=== PATIENT | male | born 1985 | race Caucasian/White ===

== ENCOUNTER 2018-11-01 19:13 | Emergency (ER) | payer SELFPAY ==
[2018-11-01 20:25] LABS: #Basophils 0.2 thou/uL (0.0-0.2); #Eosinphils 0.2 thou/uL (0.0-0.7); #Lymphocytes 3.4 thou/uL (1.20-3.40); #Monocytes 0.8 thou/uL (0.11-0.59); #Neutrophils 2.5 thou/uL (1.40-6.50); %Basophils 2.4 % (0.0-1.0); %Eosinophils 2.4 % (0.0-10.0); %Lymphocytes 48.6 % (21.0-51.0); %Monocytes 11.1 % (0.0-10.0); %Neutrophils 35.5 % (42.0-75.0); Hemoglobin 15.6 g/dL (14.0-18.0); Mean Corpuscular HGB CONC 33.7 g/dL (32.0-36.0); Mean Corpuscular Hemoglobin 31.7 pg (27.0-31.0); Mean Corpuscular Volume 94.3 fL (78.0-98.0); Mean Platelet Volume 11.1 fL (7.4-10.4); Platelet Count 171 thou/uL (130-400); RBC Distribution Width 11.2 % (11.5-14.5); Red Blood Cell (RBC) Count 4.92 mill/uL (4.70-6.10)
[2018-11-01 20:41] LABS: ALT (SGPT) 146 U/L (8-55); AST (SGOT) 57 U/L (5-34); Albumin 4.3 g/dL (3.5-5.0); Alkaline Phosphatase 86 U/L (40-150); Anion Gap 15 mmol/L (10-20); BUN (Urea Nitrogen) 9 mg/dL (8.9-20.6); Bilirubin, Total 0.3 mg/dL (0.2-1.2); Calc. Creatinine Clearance 0 mL/min (70-130); Calcium 8.7 mg/dL (7.8-10.44); Carbon Dioxide 21 mmol/L (22-29); Chloride 105 mmol/L (98-107); Estimated GFR-MDRD 84; Globulin 3.2 g/dL (2.4-3.5); Glucose 86 mg/dL (70-105); Potassium 4.4 mmol/L (3.5-5.1); Protein, Total 7.5 g/dL (6.0-8.3); Sodium 137 mmol/L (136-145)
--- NOTE | 2018-11-01 21:20 | CT ---
CT PULMONARY ANGIOGRAM WITH IV CONTRAST AND 3D MIP RECONSTRUCTIONS 11/01/18 PROVIDED CLINICAL HISTORY: Chest pain. FINDINGS: Heart, pericardium and great vessels demonstrate an unremarkable CT appearance. There is no evidence for central or segmental pulmonary embolus. There are borderline enlarged subcarinal and bilateral hilar lymph nodes. There is patchy air space disease present within the left lower lobe, compatible with infectious pneu monitis. The lungs appear otherwise clear. There is no pleural fluid or pneumothorax apparent. The airway appears patent and of normal caliber. The visualized portions of the upper abdomen demonstrate prominent diffuse fatty infiltration of the liver. Osseous structures demonstrate no concerning lytic or blastic lesions. IMPRESSION: 1. No evidence for central or segmental pulmonary embolus. 2. Infectious pneumonitis involving the left lower lobe. 3. Presumably reactive mediastinal and hilar lymph node enlargement. Consider followup. 4. Prominent fatty infiltration of the liver. POS: [facility]
== END 2018-11-01 21:55 | disposition home or self-care (01) ==
LOC: SCSER 19:13
DX: J18.1 Lobar pneumonia, unspecified organism (principal); K76.0 Fatty (change of) liver, not elsewhere classified; J45.909 Unspecified asthma, uncomplicated; B20 Human immunodeficiency virus [HIV] disease; Z86.711 Personal history of pulmonary embolism; Z86.718 Personal history of other venous thrombosis and embolism
CPT/HCPCS: 71275; 80053; 84484; 85025; 87804; 93005; 96360; 96361; J7620

== ENCOUNTER 2019-12-25 18:16 | Emergency (ER) | payer SELFPAY ==
[2019-12-25] MEDS ORDERED: methylPREDNISolone Sod Succ/PF 125 MG/2 ML VIAL ONE (18:37)
[2019-12-25] MEDS ORDERED: Lorazepam 2 MG/ML VIAL ONE (18:37)
--- NOTE | 2019-12-25 18:47 | RAD ---
EXAM: CHEST ONE VIEW HISTORY: Chest pain. COMPARISON: None FINDINGS: The cardiac silhouette and pulmonary vasculature is within normal limits. The lungs are clear. The os seous structures are intact. IMPRESSION: No acute cardiopulmonary process.
[2019-12-25 18:51] LABS: Mean Corpuscular HGB CONC 34.8 g/dL (32.0-36.0); Mean Platelet Volume 7.7 fL (7.4-10.4); Platelet Count 228 thou/uL (130-400); RBC Distribution Width 11.4 % (11.5-14.5); Red Blood Cell (RBC) Count 4.27 mill/uL (4.70-6.10); White Blood Cell (WBC) Count 20.2 thou/uL (4.8-10.8)
[2019-12-25 19:01] LABS: ALT (SGPT) 46 U/L (8-55); AST (SGOT) 37 U/L (5-34); Albumin 4.3 g/dL (3.5-5.0); Alkaline Phosphatase 89 U/L (40-110); Anion Gap 17 mmol/L (10-20); BUN (Urea Nitrogen) 14 mg/dL (8.9-20.6); Bilirubin, Total 1.2 mg/dL (0.2-1.2); Calc. Creatinine Clearance 0 mL/min (70-130); Carbon Dioxide 21 mmol/L (22-29); Chloride 103 mmol/L (98-107); Estimated GFR-MDRD 64; Globulin 2.3 g/dL (2.4-3.5); Glucose 77 mg/dL (70-105); Lipase 14 U/L (8-78); Potassium 3.5 mmol/L (3.5-5.1); Protein, Total 6.6 g/dL (6.0-8.3); Sodium 137 mmol/L (136-145)
[2019-12-25 19:06] LABS: Acetaminophen Less than 6.0 mcg/mL (10.0-30.0); Alcohol Less than 10 mg/dL (Less than 10); CK (CPK) 1500 U/L (30-200); Magnesium 1.7 mg/dL (1.6-2.6); Salicylate Less than 8.0 mg/dL (15.0-30.0)
[2019-12-25 19:15] LABS: MDiff Complete? YES
[2019-12-25 19:16] LABS: Band 2 % (5-11); Lymphocytes 14 % (21-51); Macrocytosis SLIGHT = 6-15 cells (100X) (0-5/hpf); Monocytes 13 % (0-10); Neutrophil 61 % (42-75); Platelet Morphology Comment Appears Adequate; Polychromasia SLIGHT = 2-3 cells (100X) (0-2/hpf); Reactive Lymphocytes 10 % (0-10)
[2019-12-25 19:53] LABS: Bacteria/HPF None Seen HPF (None Seen); Squamous Epithelial None Seen HPF (0-3); WBC/HPF None Seen HPF (0-3)
[2019-12-25 19:57] LABS: Amphetamine Not Detected (NotDetected); Barbiturates Screen Not Detected (NotDetected); Benzodiazepine Screen Not Detected (NotDetected); Cocaine Metabolite Screen Not Detected (NotDetected); Medtox Control Line Valid? VALID (VALID); Medtox Reader # READER 1; Methadone Not Detected (NotDetected); Methamphetamine Detected (NotDetected); Opiate Screen Not Detected (NotDetected); Oxycodone Screen Not Detected (NotDetected); Phencyclidine (PCP) Not Detected (NotDetected); THC/Cannabinoid Screen Not Detected (NotDetected); Tricyclic Screen Not Detected (NotDetected)
[2019-12-25 20:10] LABS: Bilirubin Negative (Negative); Blood, Urine Negative (Negative); Glucose, Urine (Dipstick) Negative (Negative); Leukocyte Negative (Negative); Nitrite Negative (Negative); Protein, Urine (Dipstick) Negative (Neg-Trace); Urobilinogen 0.2 mg/dL (Less than 2)
[2019-12-25 20:13] LABS: Clarity Clear (Clear)
[2019-12-28 07:23] LABS: #Eosinphils 0.2 thou/uL (0.0-0.7); #Lymphocytes 3.7 thou/uL (1.20-3.40); #Monocytes 0.7 thou/uL (0.11-0.59); #Neutrophils 4.7 thou/uL (1.40-6.50); %Basophils 0.4 % (0.0-1.0); %Eosinophils 1.7 % (0.0-10.0); %Lymphocytes 39.7 % (21.0-51.0); %Neutrophils 50.3 % (42.0-75.0); Hemoglobin 15.4 g/dL (14.0-18.0); Mean Corpuscular HGB CONC 34.6 g/dL (32.0-36.0); Mean Corpuscular Hemoglobin 35.7 pg (27.0-31.0); Mean Platelet Volume 7.7 fL (7.4-10.4); Platelet Count 255 thou/uL (130-400); RBC Distribution Width 11.6 % (11.5-14.5); Red Blood Cell (RBC) Count 4.31 mill/uL (4.70-6.10); White Blood Cell (WBC) Count 9.3 thou/uL (4.8-10.8)
[2019-12-28 07:43] LABS: Anion Gap 9 mmol/L (10-20); BUN (Urea Nitrogen) 11 mg/dL (8.9-20.6); Calc. Creatinine Clearance 0 mL/min (70-130); Calcium 8.9 mg/dL (7.8-10.44); Carbon Dioxide 31 mmol/L (22-29); Chloride 105 mmol/L (98-107); Estimated GFR-MDRD Greater than 90; Glucose 96 mg/dL (70-105); Potassium 3.5 mmol/L (3.5-5.1); Sodium 141 mmol/L (136-145)
--- NOTE | 2019-12-28 18:21 | CT ---
CT HEAD WITHOUT IV CONTRAST COMPARISON: None HISTORY: New onset hallucinations. Shortness of breath. TECHNIQUE: Axial CT imaging at 5 mm intervals from vertex through skull base without contrast FINDINGS: There is no evidence of an acute infarction, hemorrhage, mass effect, or midline shift. The ventricul ar system is normal in size, shape, and position. Visualized paranasal sinuses are clear. Osseous structures appear intact. IMPRESSION: 1. No acute intracranial abnormality demonstrated.
--- NOTE | 2019-12-30 18:22 | EKG ---
Test Reason : Blood Pressure : / mmHG Vent. Rate : 109 BPM Atrial Rate : 109 BPM P-R Int : 156 ms QRS Dur : 078 ms QT Int : 368 ms P-R-T Axes : 035 028 040 degrees QTc Int : 495 ms Sinus tachycardia Possible Left atrial enlargement Low voltage QRS Nonspecific T wave abnormality Abnormal ECG Confirmed by ALO RUDD ([id number]), order editor LIZZ EMMANUEL ([id number]) on 12/30/2019 6:22:15 PM Referred By: Confirmed By:ALO RUDD
== END 2019-12-25 20:11 ==
LOC: ERS 18:16
DX: F22 Delusional disorders (principal); J45.901 Unspecified asthma with (acute) exacerbation; M62.82 Rhabdomyolysis; F15.10 Other stimulant abuse, uncomplicated; B20 Human immunodeficiency virus [HIV] disease; J45.909 Unspecified asthma, uncomplicated; F17.210 Nicotine dependence, cigarettes, uncomplicated; Z86.718 Personal history of other venous thrombosis and embolism; Z86.711 Personal history of pulmonary embolism; Z79.01 Long term (current) use of anticoagulants; Z79.899 Other long term (current) drug therapy
CPT/HCPCS: 36415; 70450; 71045; 80048; 80053; 80306; 80307; 81003; 82550; 83690; 83735; 84443; 84484; 85025; 93005; 96361; 96374; 96375; J2060; J2930; J7620

== ENCOUNTER 2020-01-17 17:55 | Inpatient (IN) | payer SELFPAY ==
--- NOTE | 2020-01-17 19:06 | ULT ---
ULTRASOUND DOPPLER DUPLEX VENOUS LEFT LOWER EXTREMITY: DATE: 01/17/2020 HISTORY: 34-year-old male with left lower extremity swelling and erythema. History of prior DVT. TECHNIQUE: Grayscale, color-flow, and spectral analysis, of the left common femoral, profunda femoral, greater s aphenous, femoral, popliteal, and posterior tibial, veins. FINDINGS: There is thrombus causing incomplete compressibility of the midportion of the femoral vein and poplit eal vein. There is blood flow in these veins. No DVT is visualized in the other veins. IMPRESSION: Positive for nonocclusive deep venous thrombosis in midportion of femoral vein and in popliteal vein.
[2020-01-17 19:11] LABS: #Basophils 0.1 thou/uL (0.0-0.2); #Eosinphils 0.2 thou/uL (0.0-0.7); #Lymphocytes 3.4 thou/uL (1.20-3.40); #Neutrophils 12.3 thou/uL (1.40-6.50); %Basophils 0.4 % (0.0-1.0); %Eosinophils 0.9 % (0.0-10.0); %Lymphocytes 19.9 % (21.0-51.0); %Neutrophils 72.8 % (42.0-75.0); Hemoglobin 14.8 g/dL (14.0-18.0); Mean Corpuscular HGB CONC 34.9 g/dL (32.0-36.0); Mean Corpuscular Hemoglobin 35.4 pg (27.0-31.0); Mean Platelet Volume 7.6 fL (7.4-10.4); Platelet Count 261 thou/uL (130-400); RBC Distribution Width 11.8 % (11.5-14.5); White Blood Cell (WBC) Count 16.9 thou/uL (4.8-10.8)
[2020-01-17 19:33] LABS: ALT (SGPT) 49 U/L (8-55); AST (SGOT) 23 U/L (5-34); Albumin 4.2 g/dL (3.5-5.0); Alkaline Phosphatase 92 U/L (40-110); Anion Gap 11 mmol/L (10-20); BUN (Urea Nitrogen) 12 mg/dL (8.9-20.6); Bilirubin, Total 0.3 mg/dL (0.2-1.2); Calc. Creatinine Clearance 0 mL/min (70-130); Carbon Dioxide 24 mmol/L (22-29); Chloride 108 mmol/L (98-107); Estimated GFR-MDRD Greater than 90; Globulin 2.3 g/dL (2.4-3.5); Glucose 84 mg/dL (70-105); Potassium 3.9 mmol/L (3.5-5.1); Protein, Total 6.5 g/dL (6.0-8.3); Sodium 139 mmol/L (136-145)
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
[2020-01-17] MEDS ORDERED: cefTRIAXone\\ROCEPHIN 2 GM VIAL ONE (20:28)
[2020-01-17] MEDS ORDERED: Enoxaparin Sodium 80 MG/0.8 ML SYRINGE ONE ×3 (20:28→20:40)
[2020-01-17] MEDS ORDERED: Enoxaparin Sodium 30 MG/0.3 ML SYRINGE ONE ×2 (20:28→20:30)
[2020-01-17] MEDS ORDERED: Acetaminophen 325 MG TAB PO PRN (21:05)
[2020-01-17] MEDS ORDERED: Ondansetron PF 4 MG/2 ML Vial IVP PRN (21:05)
[2020-01-17] MEDS ORDERED: Acetaminophen 650 MG Suppository PR PRN (21:05)
[2020-01-17] MEDS ORDERED: Ondansetron ODT 4 MG TAB PO PRN (21:05)
[2020-01-17 21:42] LABS: PTT 29.1 SEC (22.9-36.1); Prothrombin Time 13.1 SEC (12.0-14.7)
[2020-01-17] MEDS ORDERED: Vancomycin HCl 2 GM in Sodium Chloride 0.9% 250 ML 300 ML IVPB SCH (22:00)
[2020-01-17 22:39] VITALS: BMI 32.3
[2020-01-17] MEDS ORDERED: Vancomycin HCl 2.5 GM in Sodium Chloride 0.9% 500 ML IVPB SCH (23:59)
[2020-01-18 00:22] LABS: Amphetamine Not Detected (NotDetected); Barbiturates Screen Not Detected (NotDetected); Benzodiazepine Screen Not Detected (NotDetected); Cocaine Metabolite Screen Not Detected (NotDetected); Medtox Reader # READER 4; Methadone Not Detected (NotDetected); Methamphetamine Not Detected (NotDetected); Opiate Screen Not Detected (NotDetected); Phencyclidine (PCP) Not Detected (NotDetected); THC/Cannabinoid Screen Not Detected (NotDetected); Tricyclic Screen Not Detected (NotDetected)
[2020-01-18 00:23] LABS: Medtox Control Line Valid? VALID (VALID); Oxycodone Screen Not Detected (NotDetected)
[2020-01-18] MEDS ORDERED: diphenhydrAMINE 25 MG CAP PO SCH (05:00)
[2020-01-18 05:36] LABS: #Basophils 0.1 thou/uL (0.0-0.2); #Eosinphils 0.3 thou/uL (0.0-0.7); #Lymphocytes 3.5 thou/uL (1.20-3.40); #Monocytes 0.7 thou/uL (0.11-0.59); #Neutrophils 4.7 thou/uL (1.40-6.50); %Basophils 0.8 % (0.0-1.0); %Eosinophils 2.8 % (0.0-10.0); %Lymphocytes 37.7 % (21.0-51.0); %Monocytes 7.4 % (0.0-10.0); %Neutrophils 51.3 % (42.0-75.0); Hemoglobin 14.7 g/dL (14.0-18.0); Mean Corpuscular HGB CONC 34.1 g/dL (32.0-36.0); Mean Platelet Volume 8.3 fL (7.4-10.4); Platelet Count 240 thou/uL (130-400); RBC Distribution Width 11.8 % (11.5-14.5); Red Blood Cell (RBC) Count 4.19 mill/uL (4.70-6.10); White Blood Cell (WBC) Count 9.2 thou/uL (4.8-10.8)
[2020-01-18 05:58] LABS: Anion Gap 10 mmol/L (10-20); BUN (Urea Nitrogen) 9 mg/dL (8.9-20.6); Calc. Creatinine Clearance 226 mL/min (70-130); Calcium 7.9 mg/dL (7.8-10.44); Carbon Dioxide 22 mmol/L (22-29); Chloride 109 mmol/L (98-107); Estimated GFR-MDRD Greater than 90; Glucose 94 mg/dL (70-105); Potassium 3.7 mmol/L (3.5-5.1); Sodium 137 mmol/L (136-145)
--- NOTE | 2020-01-18 07:05 | PDOC.FM ---
- Subjective Subjective: Patient says that he is feeling well. Denies fever, chills. Says redness has slightly improved but hasnt noticed difference in size of erythema. Mr. Allen shared about hx of during hospitalization in [place] that a physician told him he had a lupus gene positive but the doctor didnt explain what this meant in regards to his DVT. DVT first diagnosed 2009, on warfarin 2-3 years. Then May 2019 diagnosed again in same leg, took eliquis for 3 months then lost to follow up and financial situation. Notes hx of previous unusual infection in R ankle that was treated as cellulitis multiple times and then found to have air under skin on xray and was taken back immediately for surgery. Patient notes the ED physician was surprised by the finding. - Objective Vital Signs & Weight: Vital Signs (12 hours) Temp Pulse Resp BP BP Pulse Ox 01/18/20 04:30 97.9 F 63 20 97/67 95 01/17/20 22:00 96 01/17/20 21:40 98.9 F 84 16 110/77 96 Weight Weight 117.299 kg I&O: 01/17/20 01/18/20 01/19/20 06:59 06:59 06:59 Intake Total 900 Output Total 950 Balance -50 Result Diagrams: 01/18/20 05:01 01/18/20 05:01 Phys Exam - Physical Examination Constitutional: NAD Respiratory: no wheezing, clear to auscultation bilateral Cardiovascular: RRR, no significant murmur Gastrointestinal: soft, positive bowel sounds LLE with bright erythema, reticular like appearance, no noticeable edema Warm to touch. No noticeable edema compared to R Neurological: non-focal Psychiatric: normal affect Skin: normal turgor Dx/Plan - Plan Plan: Recurrent DVT of LLE - US doppler of LLE showing DVT in midportion of femoral/popliteal vein. - Continue with th lovenox 1mg mg/kg BID - Consult case management for dc planning and to help with anticoag upon dc Cellulitis - Continue with rocephin and vanc, for MRSA coverage - Monitor swelling/erythema, elevated LLE - No systemic symptoms, WBC downtrended, Bcx pending. - Consult Dr. Noriega HIV - Continue home meds - [facility] is [facility]. Viral load , CD4 pending. Tobacco use - Urologic Nurse cessation Hx of Drug use - UDS negative Anxiety/schizophrenia - Continue home seroquel Code: Full Diet: reg VTE: th lovenox Dispo: Continue abx therapy, appreciate recommendations from Dr. Noriega. Case management consulted. Addendum - Attending - Attending Attestation Date/Time: 01/18/20 [id number] I personally evaluated the patient and discussed the management with Dr. Jacobo I agree with the History, Examination, Assessment and Plan documented above with any addition or exceptions noted below- Patient without complaints. Afebrile VSS A/P: 1) Cellulitis- continue current therapy. 2) HIV- on Biktarvy; no recent follow-up with ID. Will consult. 3) L chronic DVT; has been off anticoagulation for last 3 months; Currently on lovenox but plan to transition to eliquis versus coumadin. Case management to assist with medication options.
[2020-01-18] MEDS: Vancomycin HCl 1.75 GM in Sodium Chloride 0.9% 500 ML IVPB SCH ×2 (07:56→10:12)
[2020-01-18 08:22] LABS: Vancomycin, Trough 29.9 ug/mL
[2020-01-18] MEDS: Enoxaparin Sodium 120 MG/0.8 ML SYRINGE SC SCH ×2 (08:49→20:57)
[2020-01-18] MEDS: Ibuprofen 600 MG TAB PO PRN ×2 (10:11→22:22)
--- NOTE | 2020-01-18 18:56 | CON ---
DATE OF CONSULTATION: 01/18/2020 REASON FOR CONSULTATION: DVT and HIV positive patient with possible cellulitis. HISTORY OF PRESENT ILLNESS: A 34-year-old whom I follow in the clinic, last time I saw him was at the beginning of 2018. He is currently taking Biktarvy. His last viral load was 160 in December 2018, and CD4 cell count was 870 approximately. He has not had any labs since I have not seen him in a while. He stays at [facility] and is homeless at the moment. Anyway, he has a history of also deep vein thrombosis since 2008, has had pulmonary embolism and was initially diagnosed in [place] and apparently he had a positive antiphospholipid antibody panel in [place] in 2008. He was on warfarin for a while and then was switched to Eliquis in [place] and ran out of the samples they had given him and now has come back with recurrence of the problem basically with a left lower extremity swelling, erythema, and pain. He denied any fever or chills. No respiratory symptoms. No chest pain. No abdominal pain or diarrhea. No genitourinary symptoms. No joint symptoms. PAST MEDICAL HISTORY: HIV seropositive status. His CD4 cell count 870 about a year ago and on Biktarvy with good adherence. He has history of schizophrenia. Deep vein thrombosis. Reported antiphospholipid antibody syndrome. PAST SURGICAL HISTORY: Cellulitis. He has had recurrent cellulitis in lower extremities. FAMILY HISTORY: Unknown. He is adopted. SOCIAL HISTORY: Lives in [facility]. 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 Smokes daily. PHYSICAL EXAMINATION: VITAL SIGNS: Temperature 98.9, when he came in through the emergency room, his temperature was within normal limits. SKIN: Shows the somewhat reticulated nonblanching area of erythema in the medial aspect of the left leg. There is edema associated about 2+ in the leg. No blistering. No lymphadenopathy. HEENT: Ocular movements conjugate. Oral cavity normal. NECK: Supple. No jugular vein distention. LUNGS: Symmetric. Clear breath sounds. HEART: S1 and S2. Regular rate. No S3 or S4. ABDOMEN: Soft. Not distended or tender. No ascites. No bladder distention. LABORATORY DATA: The patient had a vascular ultrasound, which demonstrated nonocclusive DVT midportion femoral vein, popliteal vein. Two sets of blood cultures, no growth. White cell count was 16.9, hemoglobin 14.8, and platelets 261, 72% neutrophils and now the WBCs down to 9.2, hemoglobin of 14.7, and creatinine 0.75. He is receiving vancomycin and is on Lovenox still. ASSESSMENT: 1. Human immunodeficiency virus seropositive status with adequate viral load and CD4 cell count about a year ago. Need to repeat that evaluation since he has been in clinic in about a year. 2. History of antiphospholipid syndrome with warfarin for a while, then switch to Eliquis. He is unable to procure Eliquis, so I would advise switching back to warfarin, which is much more affordable. 3. Left lower extremity changes. DISCUSSION: The differential diagnosis includes the clinical findings consistent with deep vein thrombosis, plus minus superimposed cellulitis. The neutrophilia on admission is mostly demargination and it is possible that he does not have an infection. We will continue just with Rocephin and switch him to Keflex upon discharge planning, penicillin VK 250 mg twice daily at the completion of the acute phase of treatment for chronic secondary prophylaxis and continue warfarin. Continue Biktarvy as currently. Check CD4 cell count and viral load. Job ID: [id number] MTDD
[2020-01-18] MEDS: cefTRIAXone\\ROCEPHIN 1 GM in Sodium Chloride 0.9% 100 ML IVPB SCH (20:57)
[2020-01-18] MEDS: Nicotine 7 MG PATCH TD SCH (22:22)
--- NOTE | 2020-01-19 06:58 | PDOC.FM ---
- Subjective Subjective: Mr. Allen was feeling tired this morning. No concerns otherwise, feeling well. Says he would be interested in starting warfarin. - Objective Vital Signs & Weight: Vital Signs (12 hours) Temp Pulse Resp BP Pulse Ox 01/18/20 20:00 94 L 01/18/20 19:52 98.7 F 77 18 116/56 L 94 L Weight Admit Weight 117.299 kg Weight 117.299 kg I&O: 01/17/20 01/18/20 01/19/20 06:59 06:59 06:59 Intake Total 900 Output Total 950 Balance -50 Result Diagrams: 01/18/20 05:01 01/18/20 05:01 Phys Exam - Physical Examination Constitutional: NAD Respiratory: no wheezing, clear to auscultation bilateral Cardiovascular: RRR, no significant murmur Gastrointestinal: soft, non-tender, positive bowel sounds Skin: normal turgor Deviation from normal: erythema of LLE improved since yesterday Dx/Plan - Plan Plan: Recurrent DVT of LLE - US doppler of LLE showing DVT in midportion of femoral/popliteal vein. - Continue with th lovenox 1mg mg/kg BID - Consulted case management, difficult situation as patient doesnt have permanent address to get assistance program for DOAC. Patient open to warfarin. However questionable if would be able to follow up and get labs for this. Cellulitis, improving - Monitor swelling/erythema, elevated LLE - No systemic symptoms, WBC downtrended, Bcx pending. - Consult Dr. Noriega - on rocephin, plan to switch to PO keflex on discharge HIV - Continue home meds - [facility]. Viral load , CD4 pending. 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 Reliable follow up is questionable. Addendum - Attending - Attending Attestation Date/Time: 01/19/20 1051 I personally evaluated the patient and discussed the management with Dr. Jacobo I agree with the History, Examination, Assessment and Plan documented above with any addition or exceptions noted below - Patient without complaints. Afebrile VSS. A/P: 1) Chronic DVT- will star warfarin due to patient's social situation. Continue lovenox. 2) Cellulitis- improving; will transition to keflex. 3) HIV- continue biktarvy; viral load and CD4 count pending.
[2020-01-19] MEDS: Enoxaparin Sodium 120 MG/0.8 ML SYRINGE SC SCH ×2 (08:58→20:41)
[2020-01-19 15:12] LABS: %CD4 (Helper/Inducer) 36.3 % (30.8-58.5); Absolute CD4 1125 /uL (359-1519); Lymphocytes/Gated Cell Count 3.1 x10E3/uL (0.7-3.1); Total Lymphocyte 35 % (Not Estab.); WBC Total Count 8.9 x10E3/uL (3.4-10.8)
[2020-01-19] MEDS: Warfarin Sodium 5 MG TAB PO SCH (16:49)
[2020-01-19] MEDS: cefTRIAXone\\ROCEPHIN 1 GM in Sodium Chloride 0.9% 100 ML IVPB SCH (20:38)
[2020-01-19] MEDS: Nicotine 7 MG PATCH TD SCH (23:16)
[2020-01-20 06:21] LABS: Prothrombin Time 13.2 SEC (12.0-14.7)
--- NOTE | 2020-01-20 06:42 | PDOC.FM ---
- Subjective Subjective: Mr. Allen reports feeling well. Erythema continues to improve. Denies constipation. Feeling well with no complaints. - Objective Vital Signs & Weight: Vital Signs (12 hours) Temp Pulse Resp BP Pulse Ox 01/19/20 20:35 98.7 F 80 18 111/76 95 01/19/20 20:00 95 Weight Admit Weight 117.299 kg Weight 117.299 kg I&O: 01/18/20 01/19/20 01/20/20 06:59 06:59 06:59 Intake Total 900 810 Output Total 950 Balance -50 810 Result Diagrams: 01/18/20 05:01 01/18/20 05:01 Phys Exam - Physical Examination Constitutional: NAD Respiratory: no wheezing, clear to auscultation bilateral Cardiovascular: RRR, no significant murmur Gastrointestinal: soft, non-tender Neurological: non-focal Skin: normal turgor Deviation from normal: LLE erythema improving Dx/Plan - Plan Plan: 34 yo M with PMH HIV, DVT presents with recurrence of DVT, cellulitis and is admitted for further management. Recurrent DVT of LLE - US doppler of LLE showing DVT in midportion of femoral/popliteal vein. - Continue with th lovenox 1mg mg/kg BID - Consulted case management - Started on warfarin 01/18. Daily INR checks. Continue 5mg today. Cellulitis, improving - Monitor swelling/erythema, elevated LLE - No systemic symptoms, WBC downtrended, blood cx neg. - Consult Dr. Noriega - on rocephin, plan to switch to PO keflex on discharge HIV - Continue home meds - [facility] is [facility]. Viral load , CD4 pending. 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 Expect a couple more days. Addendum - Attending - Attending Attestation Date/Time: 01/20/20 [id number] I personally evaluated the patient and discussed the management with Dr. Jacobo I agree with the History, Examination, Assessment and Plan documented above with any addition or exceptions noted below- Patient without complaints. Afebrile VSS. A/P: 1) Cellulitis- improved; continue current abx and transition to po upon discharge. Will clarify with Dr. Noriega the prophylaxis regimen due to patient's PCN allergy. 2) Chronic DVT- continue lovenox and warfarin. 3) HIV - continue biktarvy. [id number]; viral load pending.
[2020-01-20] MEDS: Enoxaparin Sodium 120 MG/0.8 ML SYRINGE SC SCH ×2 (10:26→21:25)
[2020-01-20] MEDS: Warfarin Sodium 5 MG TAB PO SCH (16:42)
[2020-01-20] MEDS: cefTRIAXone\\ROCEPHIN 1 GM in Sodium Chloride 0.9% 100 ML IVPB SCH (21:20)
[2020-01-20] MEDS: Nicotine 7 MG PATCH TD SCH (21:28)
[2020-01-21 05:44] LABS: Prothrombin Time 13.3 SEC (12.0-14.7)
--- NOTE | 2020-01-21 06:59 | PDOC.FM ---
- Subjective Subjective: Mr. Allen has no complaints or concerns. Cellulitis continues to improve. - Objective Vital Signs & Weight: Vital Signs (12 hours) Temp Pulse Resp BP Pulse Ox 01/20/20 20:00 98.3 F 98 18 128/79 94 L Weight Admit Weight 117.299 kg Weight 117.299 kg I&O: 01/19/20 01/20/20 01/21/20 06:59 06:59 06:59 Intake Total 810 1530 Balance 810 1530 Result Diagrams: 01/18/20 05:01 01/18/20 05:01 Phys Exam - Physical Examination Constitutional: NAD Respiratory: no wheezing, clear to auscultation bilateral Cardiovascular: RRR, no significant murmur Gastrointestinal: soft, non-tender Musculoskeletal: no edema Neurological: non-focal Skin: normal turgor Dx/Plan - Plan Plan: 34 yo M with PMH HIV, DVT presents with recurrence of DVT, cellulitis and is admitted for further management. Recurrent DVT of LLE - US doppler of LLE showing DVT in midportion of femoral/popliteal vein. - Continue with th lovenox 1mg mg/kg BID - Consulted case management - Started on warfarin 01/18. Daily INR checks. INR 1. Increase dose to 10 today. Cellulitis, improving - Monitor swelling/erythema, elevated LLE - No systemic symptoms, WBC downtrended, blood cx neg. - Consult Dr. Noriega - on rocephin, plan to switch to PO keflex on discharge HIV - Continue home Bictarvy. CD4 1125. 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 Expect a couple more days. Addendum - Attending - Attending Attestation Date/Time: 01/21/20 1048 I personally evaluated the patient and discussed the management with Dr. Jacobo I agree with the History, Examination, Assessment and Plan documented above with any addition or exceptions noted below- Patient without complaints. Afebrile VSS. A/P: 1) Cellulitis - improved; change to po abx; 2) Chronic DVT - continue lovenox and warfarin. Await INR = 2-3; 3) HIV- continue Biktarvy
[2020-01-21] MEDS: Enoxaparin Sodium 120 MG/0.8 ML SYRINGE SC SCH ×2 (09:43→20:01)
[2020-01-21] MEDS: Bictegrav/Emtricit/Tenofov Ala [Biktarvy 50-200-25 Mg Tablet] PO SCH ×3 (09:43→09:44)
[2020-01-21] MEDS ORDERED: Cephalexin 250 MG CAP PO SCH (11:15)
[2020-01-21] MEDS: Warfarin Sodium 10 MG TAB PO SCH (17:19)
[2020-01-21 17:25] LABS: INR-International Normal Ratio 1.1
--- NOTE | 2020-01-21 17:45 | PRG ---
DATE OF SERVICE: SUBJECTIVE: Patient is much better in terms of his left lower leg erythema and pain. Still having his INR upgraded and that is holding his discharge. No other symptoms of significance. OBJECTIVE: VITAL SIGNS: His vital signs are normal. O2 saturations are good. LUNGS: Clear. HEART: S1-S2. Regular rate. ABDOMEN: Soft. EXTREMITIES: The left leg with complete resolution of the erythema and tenderness. LABORATORY DATA: The CD4 cell count is 1125, viral load is pending. White cell count is 9.2. Blood culture, no growth. ASSESSMENT AND DISCUSSION: Human immunodeficiency virus seropositive status with adequate CD4 cell count pending viral load. History of antiphospholipid syndrome, currently on warfarin. Left lower extremity changes which are more likely to represent the consequences of the DVT rather than cellulitis, but he was treated for superimposed cellulitis nonetheless. Continue Keflex for another five or seven days and then transition to suppressive pen VK 250 twice daily for 6 to 12 months. Continue his antiretroviral therapy. Job ID: [id number]
[2020-01-21] MEDS: Cephalexin 250 MG CAP PO SCH (20:01)
[2020-01-21] MEDS: Nicotine 7 MG PATCH TD SCH (21:27)
[2020-01-22 06:07] LABS: INR-International Normal Ratio 1.2; Prothrombin Time 15.5 SEC (12.0-14.7)
--- NOTE | 2020-01-22 06:51 | PDOC.FM ---
- Subjective Subjective: Pt has not complaints this morning. States his leg is looking and feeling better. Denies any events overnight. No SOB, cough. - Objective Vital Signs & Weight: Vital Signs (12 hours) Temp Pulse Resp BP Pulse Ox 01/21/20 20:00 97.8 F 77 18 102/70 95 Weight Admit Weight 117.299 kg Weight 117.299 kg I&O: 01/20/20 01/21/20 01/22/20 06:59 06:59 06:59 Intake Total 810 1530 1340 Balance 810 1530 1340 Result Diagrams: 01/18/20 05:01 01/18/20 05:01 Phys Exam - Physical Examination Constitutional: NAD HEENT: sclera anicteric Neck: full ROM Respiratory: clear to auscultation bilateral Cardiovascular: RRR Gastrointestinal: soft, non-tender trace edema Neurological: non-focal Psychiatric: normal affect, A&O x 3 Deviation from normal: mild venous static skin changes to RLE, interval improvement Dx/Plan (1) Anxiety Code(s): F41.9 - ANXIETY DISORDER, UNSPECIFIED Status: Acute (2) Asthma Code(s): J45.909 - UNSPECIFIED ASTHMA, UNCOMPLICATED Status: Acute (3) Deep vein blood clot of left lower extremity Code(s): I82.402 - ACUTE EMBOLISM AND THOMBOS UNSP DEEP VEINS OF L LOW EXTREM Status: Acute (4) HIV (human immunodeficiency virus infection) Code(s): B20 - HUMAN IMMUNODEFICIENCY VIRUS [HIV] DISEASE Status: Acute - Plan Plan: 34 yo M with PMH HIV, DVT presents with recurrence of DVT, cellulitis and is admitted for further management. Recurrent DVT of LLE - US doppler of LLE showing DVT in midportion of femoral/popliteal vein. - Continue with lovenox 1mg mg/kg BID - Consulted case management - Started on warfarin 01/18. Daily INR checks. INR 1.2 today. Dose increased to 10 yesterday - No further dose adjustments at this time as it takes multiple days to see Rx affect - Will continue to monitor INR until near or fully therapeutic before DC Cellulitis vs Acute Venous Stasis - Monitor swelling/erythema, elevated LLE - No systemic symptoms, WBC downtrended, blood cx neg. - Consult Dr. Noriega - switched from rocephin to keflex yesterday - Recommended penicillin for prophylaxis as outpt however pt has established anaphylactic rxn as child - Will discuss other options HIV - Continue home Bictarvy. CD4 1125. Tobacco use - Rn Document Improvement cessation Hx of Drug use - UDS negative Anxiety/schizophrenia - Continue home seroquel Code: Full Diet: reg VTE: th lovenox Dispo: Continue warfarin bridging. Expect a couple more days. Addendum - Attending - Attending Attestation Date/Time: 01/22/20 7967 I personally evaluated the patient and discussed the management with Dr. Lockett. I agree with the History, Examination, Assessment and Plan documented above with any addition or exceptions noted below. Patient here with possible cellulitis but proven DVT in his LE. He will continue on lovenox bridge to warfarin therapy, trend INR. Continue HIV meds as rx'd.
[2020-01-22] MEDS: Cephalexin 250 MG CAP PO SCH ×2 (07:44→21:12)
[2020-01-22] MEDS: Enoxaparin Sodium 120 MG/0.8 ML SYRINGE SC SCH ×2 (07:45→21:12)
[2020-01-22] MEDS: Bictegrav/Emtricit/Tenofov Ala [Biktarvy 50-200-25 Mg Tablet] PO SCH (07:46)
[2020-01-22] MEDS: Warfarin Sodium 10 MG TAB PO SCH (16:46)
[2020-01-22] MEDS: Nicotine 7 MG PATCH TD SCH (21:12)
[2020-01-23 05:45] LABS: INR-International Normal Ratio 1.7; Prothrombin Time 19.7 SEC (12.0-14.7)
--- NOTE | 2020-01-23 06:30 | PDOC.FM ---
- Subjective Subjective: Pt without complaints this morning and denies any events overnight. No shortness of breath, leg pain, or skin changes. Discussed the change in his INR and again reiterated the importance of outpt follow up. States he will see Dr. Noriega outpt and is working with CM currently to get his established with a PCP. - Objective Vital Signs & Weight: Vital Signs (12 hours) Temp Pulse Resp BP Pulse Ox 01/22/20 20:00 94 L 01/22/20 19:46 98.4 F 86 20 107/73 94 L Weight Admit Weight 117.299 kg Weight 117.299 kg I&O: 01/21/20 01/22/20 01/23/20 06:59 06:59 06:59 Intake Total 1530 1340 1080 Balance 1530 1340 1080 Result Diagrams: 01/18/20 05:01 01/18/20 05:01 Phys Exam - Physical Examination Constitutional: NAD HEENT: moist MMs, sclera anicteric Neck: full ROM Respiratory: clear to auscultation bilateral Cardiovascular: RRR Gastrointestinal: soft Musculoskeletal: no edema Neurological: non-focal, moves all 4 limbs Psychiatric: normal affect, A&O x 3 Skin: cap refill <2 seconds Dx/Plan (1) Anxiety Code(s): F41.9 - ANXIETY DISORDER, UNSPECIFIED Status: Acute (2) Asthma Code(s): J45.909 - UNSPECIFIED ASTHMA, UNCOMPLICATED Status: Acute (3) Deep vein blood clot of left lower extremity Code(s): I82.402 - ACUTE EMBOLISM AND THOMBOS UNSP DEEP VEINS OF L LOW EXTREM Status: Acute (4) HIV (human immunodeficiency virus infection) Code(s): B20 - HUMAN IMMUNODEFICIENCY VIRUS [HIV] DISEASE Status: Acute - Plan Plan: 34 yo M with PMH HIV, DVT presents with recurrence of DVT, cellulitis and is admitted for further management. Recurrent DVT of LLE - US doppler of LLE showing DVT in midportion of femoral/popliteal vein. - Continue with lovenox 1mg mg/kg BID - Consulted case management - Warfarin started 01/18 - INR: 1.7 today - Will continue to monitor bridging Cellulitis vs Acute Venous Stasis - Monitor swelling/erythema, elevated LLE - No systemic symptoms, WBC downtrended, blood cx neg. - Consult Dr. Leann - On keflex - Recommended penicillin for prophylaxis as outpt however pt has established anaphylactic rxn as child - Will discuss other options HIV - Continue home Bictarvy. CD4 1125. 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 Expect therapeutic level tomorrow. CM consulted for [place] Addendum - Attending - Attending Attestation Date/Time: 01/23/20 6361 I personally evaluated the patient and discussed the management with Dr. Lockett. I agree with the History, Examination, Assessment and Plan documented above with any addition or exceptions noted below.
[2020-01-23 07:14] LABS: PTT 40.2 SEC (22.9-36.1)
[2020-01-23] MEDS: Enoxaparin Sodium 120 MG/0.8 ML SYRINGE SC SCH ×2 (09:07→20:38)
[2020-01-23] MEDS: Cephalexin 250 MG CAP PO SCH ×2 (09:07→20:37)
[2020-01-23] MEDS: Bictegrav/Emtricit/Tenofov Ala [Biktarvy 50-200-25 Mg Tablet] PO SCH (09:08)
[2020-01-23 14:14] LABS: DRVVT Confirm 27.6; HEX PHOS LA Tube 1 48.5 SEC; HEX PHOS LA Tube 2 45.9 SEC; Hexagonal Phospholipid Neut 2.6 SEC (0-8.0)
[2020-01-23 14:17] LABS: Factor VIII Test 171.4 % ACTIVE (56-157)
[2020-01-23 14:22] LABS: Factor IX Test 74.7 % ACTIVE (56-149)
[2020-01-23] MEDS: Warfarin Sodium 5 MG TAB PO SCH (16:49)
[2020-01-23] MEDS: Nicotine 7 MG PATCH TD SCH (20:38)
[2020-01-24 06:17] LABS: INR-International Normal Ratio 1.8
[2020-01-24] MEDS: Bictegrav/Emtricit/Tenofov Ala [Biktarvy 50-200-25 Mg Tablet] PO SCH (08:24)
[2020-01-24] MEDS: Enoxaparin Sodium 120 MG/0.8 ML SYRINGE SC SCH ×2 (08:25→20:39)
[2020-01-24] MEDS: Cephalexin 250 MG CAP PO SCH ×2 (08:25→20:40)
--- NOTE | 2020-01-24 09:03 | PDOC.FM ---
- Subjective Subjective: Denies any complaints this morning or events overnight. No leg pain or skin changes. Aware of plan going forward and need for outpt follow up. - Objective Vital Signs & Weight: Vital Signs (12 hours) Temp Pulse Resp BP Pulse Ox 01/24/20 07:45 97.6 F 66 20 101/70 95 Weight Admit Weight 117.299 kg Weight 117.299 kg I&O: 01/23/20 01/24/20 01/25/20 06:59 06:59 06:59 Intake Total 1080 1080 Balance 1080 1080 Result Diagrams: 01/18/20 05:01 01/18/20 05:01 Phys Exam - Physical Examination Constitutional: NAD HEENT: moist MMs, sclera anicteric Neck: full ROM Respiratory: clear to auscultation bilateral Cardiovascular: RRR Gastrointestinal: soft Musculoskeletal: no edema Psychiatric: normal affect, A&O x 3 Skin: no rash, cap refill <2 seconds Dx/Plan (1) Anxiety Code(s): F41.9 - ANXIETY DISORDER, UNSPECIFIED Status: Acute (2) Asthma Code(s): J45.909 - UNSPECIFIED ASTHMA, UNCOMPLICATED Status: Acute (3) Deep vein blood clot of left lower extremity Code(s): I82.402 - ACUTE EMBOLISM AND THOMBOS UNSP DEEP VEINS OF L LOW EXTREM Status: Acute (4) HIV (human immunodeficiency virus infection) Code(s): B20 - HUMAN IMMUNODEFICIENCY VIRUS [HIV] DISEASE Status: Acute - Plan Plan: 34 yo M with PMH HIV, DVT presents with recurrence of DVT, cellulitis and is admitted for further management. Recurrent DVT of LLE - US doppler of LLE showing DVT in midportion of femoral/popliteal vein. - Continue with lovenox 1mg mg/kg BID - Consulted case management - Warfarin started 01/18 - INR: 1.8 today - Will continue to monitor bridging Cellulitis vs Acute Venous Stasis - Monitor swelling/erythema, elevated LLE - No systemic symptoms, WBC downtrended, blood cx neg. - Consult Dr. Noriega - On keflex - Recommended penicillin for prophylaxis as outpt however pt has established anaphylactic rxn as child - Will discuss other options HIV - Continue home Bictarvy. CD4 1125. 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 Expect therapeutic level to be met soon. CM consulted for placement as pt resides in [facility]. Addendum - Attending - Attending Attestation Date/Time: 01/24/20 1200 I personally evaluated the patient and discussed the management with Dr. Lockett. I agree with the History, Examination, Assessment and Plan documented above with any addition or exceptions noted below. Patient stable. Continue abx and awaiting therapeutic INR.
[2020-01-24 11:23] LABS: ANA Symphony (Qualitative) Negative (Negative); ANA Symphony (Quantitative) 0.2 Ratio (< 0.7 Negative); Cardiolipin IgA Ab 3.3 APL-U/mL (<14 Negative); Cardiolipin IgM Ab Less than 0.8 MPL-U/mL (<10 Negative); EliA APS New Method **** NEW METHOD ****; beta-2-Glycoprotein I IgA Ab 1.1 U/mL (<7 Negative); beta-2-Glycoprotein I IgG Ab Less than 0.6 U/mL (<7 Negative); beta-2-Glycoprotein I IgM Abs Less than 2.9 U/mL (<7 Negative); dsDNA IgG Antibody Less than 0.5 IU/mL (<10 Negative)
[2020-01-24] MEDS: Warfarin Sodium 5 MG TAB PO SCH (18:18)
[2020-01-24] MEDS: Nicotine 7 MG PATCH TD SCH (20:43)
[2020-01-25 05:27] LABS: INR-International Normal Ratio 1.8; Prothrombin Time 20.5 SEC (12.0-14.7)
--- NOTE | 2020-01-25 06:39 | PDOC.FM ---
- Subjective Subjective: Denies any complaints this morning. Was informed of stable INR. No leg pain, swelling, or skin changes. Agrees with current plan. - Objective Vital Signs & Weight: Vital Signs (12 hours) Temp Pulse Resp BP BP Pulse Ox 01/24/20 20:47 110/71 01/24/20 20:40 95 01/24/20 20:00 98.0 F 71 18 94/61 95 Weight Admit Weight 117.299 kg Weight 117.299 kg I&O: 01/23/20 01/24/20 01/25/20 06:59 06:59 06:59 Intake Total 1080 1080 Balance 1080 1080 Result Diagrams: 01/18/20 05:01 01/18/20 05:01 Phys Exam - Physical Examination Constitutional: NAD HEENT: moist MMs, sclera anicteric Neck: full ROM Respiratory: clear to auscultation bilateral Cardiovascular: RRR Gastrointestinal: soft Musculoskeletal: no edema Neurological: non-focal, moves all 4 limbs Psychiatric: normal affect, A&O x 3 Skin: no rash, cap refill <2 seconds Dx/Plan (1) Anxiety Code(s): F41.9 - ANXIETY DISORDER, UNSPECIFIED Status: Acute (2) Asthma Code(s): J45.909 - UNSPECIFIED ASTHMA, UNCOMPLICATED Status: Acute (3) Deep vein blood clot of left lower extremity Code(s): I82.402 - ACUTE EMBOLISM AND THOMBOS UNSP DEEP VEINS OF L LOW EXTREM Status: Acute (4) HIV (human immunodeficiency virus infection) Code(s): B20 - HUMAN IMMUNODEFICIENCY VIRUS [HIV] DISEASE Status: Acute - Plan Plan: 34 yo M with H HIV, DVT presents with recurrence of DVT, cellulitis and is admitted for further management. Recurrent DVT of LLE - US doppler of LLE showing DVT in midportion of femoral/popliteal vein. - Continue with lovenox 1mg mg/kg BID - Consulted case management - Warfarin started 01/18 - INR: 1.8 again today - Will continue to monitor bridging Cellulitis vs Acute Venous Stasis - Monitor swelling/erythema, elevated LLE - No systemic symptoms, WBC downtrended, blood cx neg. - Consult Dr. Noriega - Keflex rx will finish today - Will discuss with Dr. Noriega regarding preferred suppressive tx HIV - Continue home Bictarvy. CD4 1125. 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 Expect therapeutic level to be met soon. CM consulted for placement as pt resides in [facility]. Addendum - Attending - Attending Attestation Date/Time: 01/25/20 1110 I personally evaluated the patient and discussed the management with Dr. Lockett. I agree with the History, Examination, Assessment and Plan documented above with any addition or exceptions noted below.
[2020-01-25] MEDS: Cephalexin 250 MG CAP PO SCH ×2 (08:42→20:45)
[2020-01-25] MEDS: Bictegrav/Emtricit/Tenofov Ala [Biktarvy 50-200-25 Mg Tablet] PO SCH (08:43)
[2020-01-25] MEDS: Enoxaparin Sodium 120 MG/0.8 ML SYRINGE SC SCH ×2 (08:43→20:35)
[2020-01-25] MEDS: Warfarin Sodium 7.5 MG TAB PO SCH (16:40)
[2020-01-25] MEDS: Nicotine 7 MG PATCH TD SCH (20:46)
[2020-01-26 05:24] LABS: INR-International Normal Ratio 1.7; Prothrombin Time 20.2 SEC (12.0-14.7)
--- NOTE | 2020-01-26 06:28 | PDOC.FM ---
- Subjective Subjective: Pt continues to be asx today, no acute events. Denies any pain or swelling of his leg. Discussed outpt treatment and follow up - pt agreeable to plan for dc today with continued lovenox injections until [place] w/ follow [facility]. - Objective Vital Signs & Weight: Vital Signs (12 hours) Temp Pulse Resp BP Pulse Ox 01/25/20 20:00 98.7 F 72 18 110/69 97 Weight Admit Weight 117.299 kg Weight 117.299 kg I&O: 01/24/20 01/25/20 01/26/20 06:59 06:59 06:59 Intake Total 1080 Balance 1080 Result Diagrams: 01/18/20 05:01 01/18/20 05:01 Phys Exam - Physical Examination Constitutional: NAD HEENT: moist MMs, sclera anicteric Neck: full ROM Respiratory: no wheezing, clear to auscultation bilateral Cardiovascular: RRR Gastrointestinal: soft, non-tender Musculoskeletal: no edema, pulses present Neurological: non-focal, normal sensation, moves all 4 limbs Psychiatric: normal affect, A&O x 3 Skin: no rash, cap refill <2 seconds Dx/Plan (1) Anxiety Code(s): F41.9 - ANXIETY DISORDER, UNSPECIFIED Status: Acute (2) Asthma Code(s): J45.909 - UNSPECIFIED ASTHMA, UNCOMPLICATED Status: Acute (3) Deep vein blood clot of left lower extremity Code(s): I82.402 - ACUTE EMBOLISM AND THOMBOS UNSP DEEP VEINS OF L LOW EXTREM Status: Acute (4) HIV (human immunodeficiency virus infection) Code(s): B20 - HUMAN IMMUNODEFICIENCY VIRUS [HIV] DISEASE Status: Acute - Plan Plan: 34 yo M with PMH HIV, DVT presents with recurrence of DVT, cellulitis and is admitted for further management. Recurrent DVT of LLE - Warfarin started 01/18 - INR: 1.7 today - Rx for coumadin and lovenox through [facility] to continue as outpt - F/u Wednesday for INR recheck and Rx titration Cellulitis - Resolved - Discussed suppressive tx w/ Leann - Recommended Keflex rx to be used at first sign of skin changes HIV - Continue home Bictarvy. CD4 1125. 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 Will work with CM today to assure Rx acquisition and follow up. If able to do so today will be able to DC to [facility]. Addendum - Attending - Attending Attestation Date/Time: 01/26/20 7616 I personally evaluated the patient and discussed the management with Dr. Lockett. I agree with the History, Examination, Assessment and Plan documented above with any addition or exceptions noted below. Patient improved. He will need exterminator helper termite suppressive therapy for LE cellulitis per Dr. Noriega. He is stable for discharge with Lovenox bridging to Coumadin. He has medication assistance program and will have follow up with [facility] next week.
[2020-01-26 08:23] VITALS: BP 106/72; TEMP 97.6
[2020-01-26] MEDS: Cephalexin 250 MG CAP PO SCH (10:05)
[2020-01-26] MEDS: Enoxaparin Sodium 120 MG/0.8 ML SYRINGE SC SCH (10:05)
[2020-01-26] MEDS: Bictegrav/Emtricit/Tenofov Ala [Biktarvy 50-200-25 Mg Tablet] PO SCH (10:06)
[2020-01-26] MEDS: Warfarin Sodium 7.5 MG TAB PO SCH (14:40)
--- NOTE | 2020-01-26 15:09 | DIS ---
DATE OF ADMISSION: 01/17/2020 DATE OF DISCHARGE: 01/26/2020 ADMITTING ATTENDING: Cora Jenkins MD DISCHARGE ATTENDING: Davin Amos MD RESIDENT: John Lockett DO CONSULT: Infectious Disease, Dr. Domingo Noriega. PROCEDURES: Vascular ultrasound of left lower extremity, impression, positive for nonocclusive deep vein thrombosis in midportion of femoral vein and in popliteal vein. PRIMARY DIAGNOSIS: Deep vein thrombosis, anticardiolipin antibody positive. SECONDARY DIAGNOSES: 1. Human immunodeficiency virus. 2. Left lower extremity cellulitis. 3. Anxiety. DISCHARGE MEDICATIONS: 1. Seroquel 200 mg p.o. at bedtime. 2. Biktarvy one tablet daily. 3. Keflex 500 mg p.o. b.i.d. x7 days - to be used as needed that for sign of skin infection. 4. Enoxaparin 160 mg subcu daily x3 days. 5. Warfarin 10 mg daily. HISTORY OF PRESENT ILLNESS AND HOSPITAL COURSE: A 34-year-old male with past medical history significant for HIV and previous DVT and PE, who presented to the ER with complaint of left lower extremity pain and swelling. The patient was found to have a nonocclusive deep vein thrombosis in the left lower extremity with overlying cellulitis. He was started on therapeutic Lovenox and received 2 g of Rocephin in the emergency department and was subsequently admitted to the hospital. The patient was continued on Rocephin and also had vancomycin started for MRSA coverage. It was discovered that the patient is homeless and resides in a [place] and has limited funds to acquire medications. He was put in contact with [employer], who agreed to cover his HIV medications and was restarted on Biktarvy per Dr. Noriega. After several days of IV antibiotics, the patient was transitioned to oral Keflex with rapid resolution in his left lower extremity swelling and erythema. The CD4 count was found to be 1125. Dr. Noriega requested that the patient followup with him as an outpatient closely as he has missed his annual appointments in the past. The patient was started on Coumadin and was continued on therapeutic Lovenox for bridging. After several days of attempted bridging without reaching therapeutic Coumadin levels, [employer] agreed to cover with several days of Lovenox, so the patient to continue his bridging as an outpatient. Prior to discharge, the patient had a followup appointment set up with [facility] 3 days after discharge. He agreed to follow up with them and continue his Lovenox injections while taking the Coumadin, waiting for it to become therapeutic. We discussed return precautions prior to discharge to which the patient expressed understanding. INR at the time of discharge was 1.7 and Coumadin dose was increased to 10 mg daily. DISCHARGE INSTRUCTIONS: 1. Location: [facility]. 2. Diet: Coumadin diet. 3. Activity: As tolerated. 4. Followup: PCP in 3 days as scheduled, Dr. Noriega as previously directed. Job ID: [id number] [id number]
== END 2020-01-26 14:51 | disposition home or self-care (01) | DRG 300 ==
LOC: ERS 17:55 → T4-B 21:34
PROVIDERS: ADMIT Family Medicine; ATTEND Family Medicine
DX: I82.4Z2 Acute embolism and thrombosis of unspecified deep veins of left distal lower extremity (principal); L03.116 Cellulitis of left lower limb; Z21 Asymptomatic human immunodeficiency virus [HIV] infection status; F41.9 Anxiety disorder, unspecified; J45.909 Unspecified asthma, uncomplicated; F12.10 Cannabis abuse, uncomplicated; F15.10 Other stimulant abuse, uncomplicated; F17.210 Nicotine dependence, cigarettes, uncomplicated; F20.9 Schizophrenia, unspecified; Z86.718 Personal history of other venous thrombosis and embolism; Z79.01 Long term (current) use of anticoagulants
CPT/HCPCS: 36415; 80048; 80053; 80202; 80306; 85025; 85048; 85240; 85250; 85598; 85610; 85613; 85730; 86038; 86146; 86147; 86225; 86361; 87040; 87536; 96365; 96372; J0696; J1650; J3370; J3490; J7050; Q0163

== ENCOUNTER 2021-04-05 01:05 | Emergency (ER) | payer SELFPAY ==
[2021-04-05 02:12] LABS: #Lymphocytes 2.2 thou/uL (1.20-3.40); #Monocytes 0.7 thou/uL (0.11-0.59); #Neutrophils 10.9 thou/uL (1.40-6.50); %Basophils 0.2 % (0.0-1.0); %Eosinophils 0.2 % (0.0-10.0); %Lymphocytes 15.7 % (21.0-51.0); %Monocytes 5.2 % (0.0-10.0); %Neutrophils 78.7 % (42.0-75.0); Hemoglobin 15.7 g/dL (14.0-18.0); Mean Corpuscular HGB CONC 34.9 g/dL (32.0-36.0); Mean Corpuscular Hemoglobin 36.3 pg (27.0-31.0); Mean Platelet Volume 7.4 fL (7.4-10.4); Platelet Count 273 thou/uL (130-400); RBC Distribution Width 11.9 % (11.5-14.5); Red Blood Cell (RBC) Count 4.34 mill/uL (4.70-6.10); White Blood Cell (WBC) Count 13.8 thou/uL (4.8-10.8)
[2021-04-05 02:33] LABS: Acetaminophen Less than 6.0 mcg/mL (10.0-30.0); Alcohol Less than 10 mg/dL (Less than 10); Salicylate Less than 8.0 mg/dL (15.0-30.0)
[2021-04-05 02:36] LABS: ALT (SGPT) 56 U/L (8-55); AST (SGOT) 30 U/L (5-34); Albumin 4.4 g/dL (3.5-5.0); Alkaline Phosphatase 112 U/L (40-110); Anion Gap 13 mmol/L (10-20); BUN (Urea Nitrogen) 10 mg/dL (8.9-20.6); Bilirubin, Total 0.7 mg/dL (0.2-1.2); Calc. Creatinine Clearance 0 mL/min (70-130); Calcium 9.1 mg/dL (7.8-10.44); Carbon Dioxide 23 mmol/L (22-29); Chloride 108 mmol/L (98-107); Globulin 2.6 g/dL (2.4-3.5); Glucose 102 mg/dL (70-105); Lipase 9 U/L (8-78); Potassium 4.2 mmol/L (3.5-5.1); Sodium 140 mmol/L (136-145)
[2021-04-05 04:13] LABS: Medtox Reader # READER 4; Methamphetamine Detected (NotDetected); THC/Cannabinoid Screen Detected (NotDetected)
[2021-04-05 04:14] LABS: Amphetamine Detected (NotDetected); Barbiturates Screen Not Detected (NotDetected); Benzodiazepine Screen Detected (NotDetected); Cocaine Metabolite Screen Not Detected (NotDetected); Medtox Control Line Valid? VALID (VALID); Methadone Not Detected (NotDetected); Opiate Screen Not Detected (NotDetected); Oxycodone Screen Not Detected (NotDetected); Phencyclidine (PCP) Not Detected (NotDetected); Tricyclic Screen Not Detected (NotDetected)
== END 2021-04-05 06:12 | disposition home or self-care (01) ==
LOC: ERS 01:05
DX: R06.02 Shortness of breath (principal); F12.10 Cannabis abuse, uncomplicated; F17.210 Nicotine dependence, cigarettes, uncomplicated; Z21 Asymptomatic human immunodeficiency virus [HIV] infection status; J45.909 Unspecified asthma, uncomplicated; Z79.899 Other long term (current) drug therapy; Z86.718 Personal history of other venous thrombosis and embolism; Z86.711 Personal history of pulmonary embolism
CPT/HCPCS: 71045; 80053; 80306; 80307; 83690; 84443; 84484; 85025; 93005

== ENCOUNTER 2021-06-10 | Emergency (ER) | payer SELFPAY | END 2021-06-10 21:36 | disposition home or self-care (01) ==

== ENCOUNTER 2022-02-19 11:04 | Emergency (ER) | payer OTHER ==
[2022-02-19 13:27] LABS: SARS-CoV-2 NAA Rapid Test Not Detected (NotDetected)
== END 2022-02-19 12:10 | disposition home or self-care (01) ==
LOC: ERS 11:04
DX: S71.112A Laceration without foreign body, left thigh, initial encounter (principal); R50.9 Fever, unspecified; J45.901 Unspecified asthma with (acute) exacerbation; F17.200 Nicotine dependence, unspecified, uncomplicated; Z86.718 Personal history of other venous thrombosis and embolism; Z20.822 Contact with and (suspected) exposure to COVID-19; Z79.51 Long term (current) use of inhaled steroids
CPT/HCPCS: 99283

== ENCOUNTER 2022-10-02 20:55 | Inpatient (IN) | payer SELFPAY ==
[2022-10-03 00:04] VITALS: BMI 31.6
[2022-10-03] MEDS ORDERED: Ondansetron ODT 4 MG TAB PO PRN (03:34)
[2022-10-03] MEDS ORDERED: Acetaminophen 650 MG Suppository PR PRN (03:34)
[2022-10-03] MEDS ORDERED: Ondansetron PF 4 MG/2 ML Vial IVP PRN (03:34)
[2022-10-03] MEDS ORDERED: Acetaminophen 325 MG TAB PO PRN (03:34)
[2022-10-03] MEDS ORDERED: Ketorolac Tromethamine 30 MG/ML VIAL IVP SCH (03:45)
[2022-10-03] MEDS ORDERED: VANCOMYCIN 2 GRAM/500 ML BAG 2 GM in Premix Bag 1 BAG IVPB SCH (04:00)
[2022-10-03 06:09] LABS: #Eosinphils 0.3 thou/uL (0.0-0.7); #Lymphocytes 2.9 thou/uL (1.20-3.40); #Monocytes 1.4 thou/uL (0.11-0.59); #Neutrophils 6.2 thou/uL (1.40-6.50); %Basophils 0.3 % (0.0-1.0); %Eosinophils 2.6 % (0.0-10.0); %Lymphocytes 26.9 % (21.0-51.0); %Monocytes 12.9 % (0.0-10.0); %Neutrophils 57.2 % (42.0-75.0); Mean Corpuscular HGB CONC 33.2 g/dL (32.0-36.0); Mean Corpuscular Hemoglobin 34.9 pg (27.0-31.0); Mean Platelet Volume 7.8 fL (7.4-10.4); Platelet Count 248 10x3/uL (130-400); Red Blood Cell (RBC) Count 3.43 mill/uL (4.70-6.10); White Blood Cell (WBC) Count 10.8 10x3/uL (4.8-10.8)
[2022-10-03 06:24] LABS: Anion Gap 10 mmol/L (10-20); BUN (Urea Nitrogen) 11 mg/dL (8.9-20.6); Calc. Creatinine Clearance 194 mL/min (70-130); Calcium 8.2 mg/dL (7.8-10.44); Carbon Dioxide 22 mmol/L (22-29); Chloride 105 mmol/L (98-107); Estimated GFR 114; Glucose 130 mg/dL (70-105); Potassium 3.4 mmol/L (3.5-5.1); Sodium 134 mmol/L (136-145)
[2022-10-03] MEDS ORDERED: VANCOMYCIN 1.25 GM/250 ML BAG 1.25 GM in Premix Bag 1 BAG IVPB SCH (09:00)
[2022-10-03 10:06] LABS: Acetaminophen Less than 10.0 mcg/mL (10.0-30.0); Alcohol Less than 10 mg/dL (Less than 10); Salicylate Less than 8.0 mg/dL (15.0-30.0)
[2022-10-03] MEDS: Cefepime 2 GM in Sodium Chloride 0.9% 100 ML IVPB SCH ×2 (10:38→21:21)
[2022-10-03] MEDS: Morphine 4 MG/ML VIAL SLOW IVP PRN ×2 (10:39→21:20)
[2022-10-03] MEDS: Enoxaparin Sodium 40 MG/0.4 ML SYRINGE SC SCH (10:39)
[2022-10-03] MEDS: VANCOMYCIN 1.75 GM/500 ML BAG 1.75 GM in Premix Bag 1 BAG IVPB SCH ×2 (13:41→22:07)
[2022-10-03 16:17] LABS: Amphetamine Not Detected (NotDetected); Barbiturates Screen Not Detected (NotDetected); Benzodiazepine Screen Not Detected (NotDetected); Cocaine Metabolite Screen Not Detected (NotDetected); Methadone Not Detected (NotDetected); Methamphetamine Not Detected (NotDetected); Opiate Screen Detected (NotDetected); Oxycodone Screen Not Detected (NotDetected); Phencyclidine (PCP) Not Detected (NotDetected); THC/Cannabinoid Screen Detected (NotDetected); Tricyclic Screen Not Detected (NotDetected)
[2022-10-04 03:26] LABS: #Basophils 0.1 thou/uL (0.0-0.2); #Eosinphils 0.3 thou/uL (0.0-0.7); #Lymphocytes 3.1 thou/uL (1.20-3.40); #Monocytes 1.1 thou/uL (0.11-0.59); #Neutrophils 6.7 thou/uL (1.40-6.50); %Basophils 0.5 % (0.0-1.0); %Eosinophils 2.3 % (0.0-10.0); %Lymphocytes 27.8 % (21.0-51.0); %Monocytes 9.9 % (0.0-10.0); %Neutrophils 59.6 % (42.0-75.0); Hemoglobin 13.6 g/dL (14.0-18.0); Mean Corpuscular HGB CONC 32.7 g/dL (32.0-36.0); Mean Corpuscular Hemoglobin 34.5 pg (27.0-31.0); Mean Platelet Volume 7.4 fL (7.4-10.4); Platelet Count 314 10x3/uL (130-400); RBC Distribution Width 11.2 % (11.5-14.5); Red Blood Cell (RBC) Count 3.93 mill/uL (4.70-6.10); White Blood Cell (WBC) Count 11.2 10x3/uL (4.8-10.8)
[2022-10-04 03:44] LABS: Vancomycin, Trough 29.6 ug/mL
[2022-10-04 03:46] LABS: Anion Gap 11 mmol/L (10-20); BUN (Urea Nitrogen) 9 mg/dL (8.9-20.6); Calc. Creatinine Clearance 206 mL/min (70-130); Calcium 8.4 mg/dL (7.8-10.44); Carbon Dioxide 24 mmol/L (22-29); Chloride 105 mmol/L (98-107); Estimated GFR 116; Glucose 65 mg/dL (70-105); Potassium 3.5 mmol/L (3.5-5.1); Sodium 136 mmol/L (136-145)
[2022-10-04] MEDS: VANCOMYCIN 1.75 GM/500 ML BAG 1.75 GM in Premix Bag 1 BAG IVPB SCH ×2 (05:06→15:46)
[2022-10-04] MEDS: Cefepime 2 GM in Sodium Chloride 0.9% 100 ML IVPB SCH ×2 (07:43→20:31)
[2022-10-04] MEDS: Enoxaparin Sodium 40 MG/0.4 ML SYRINGE SC SCH (07:43)
[2022-10-04] MEDS: Morphine 4 MG/ML VIAL SLOW IVP PRN ×2 (07:45→20:34)
[2022-10-04 16:42] LABS: ANA Symphony (Qualitative) Negative (Negative); ANA Symphony (Quantitative) 0.3 Ratio (< 0.7 Negative); dsDNA IgG Antibody 1.3 IU/mL (<10 Negative)
[2022-10-05] MEDS: HYDROcodone/Acetaminophen 5/325 mg Tablet PO PRN ×4 (03:12→21:17)
[2022-10-05] MEDS: VANCOMYCIN 1.75 GM/500 ML BAG 1.75 GM in Premix Bag 1 BAG IVPB SCH ×2 (04:57→15:02)
[2022-10-05 07:05] LABS: #Basophils 0.1 thou/uL (0.0-0.2); #Eosinphils 0.3 thou/uL (0.0-0.7); #Lymphocytes 2.9 thou/uL (1.20-3.40); #Monocytes 0.9 thou/uL (0.11-0.59); #Neutrophils 5.2 thou/uL (1.40-6.50); %Basophils 0.6 % (0.0-1.0); %Eosinophils 3.6 % (0.0-10.0); %Lymphocytes 30.5 % (21.0-51.0); %Monocytes 9.6 % (0.0-10.0); %Neutrophils 55.8 % (42.0-75.0); Hemoglobin 12.4 g/dL (14.0-18.0); Mean Corpuscular Hemoglobin 34.9 pg (27.0-31.0); Mean Platelet Volume 7.4 fL (7.4-10.4); Platelet Count 307 10x3/uL (130-400); RBC Distribution Width 11.2 % (11.5-14.5); Red Blood Cell (RBC) Count 3.56 mill/uL (4.70-6.10); White Blood Cell (WBC) Count 9.3 10x3/uL (4.8-10.8)
[2022-10-05] MEDS ORDERED: Ibuprofen 200 MG TAB PO PRN (07:12)
[2022-10-05 07:23] LABS: Anion Gap 10 mmol/L (10-20); BUN (Urea Nitrogen) 7 mg/dL (8.9-20.6); Calc. Creatinine Clearance 212 mL/min (70-130); Carbon Dioxide 25 mmol/L (22-29); Chloride 108 mmol/L (98-107); Estimated GFR 117; Glucose 90 mg/dL (70-105); Sodium 139 mmol/L (136-145)
[2022-10-05] MEDS: Cefepime 2 GM in Sodium Chloride 0.9% 100 ML IVPB SCH ×2 (07:38→21:11)
[2022-10-05] MEDS: Enoxaparin Sodium 40 MG/0.4 ML SYRINGE SC SCH (08:55)
[2022-10-05 14:13] LABS: Absolute CD4 936 /uL (359-1519); Lymphocytes/Gated Cell Count 2.4 x10E3/uL (0.7-3.1); Total Lymphocyte 25 % (Not Estab.); WBC Total Count 9.5 x10E3/uL (3.4-10.8)
[2022-10-06] MEDS: HYDROcodone/Acetaminophen 5/325 mg Tablet PO PRN ×3 (02:46→14:26)
[2022-10-06 03:47] LABS: #Eosinphils 0.3 thou/uL (0.0-0.7); #Lymphocytes 3.1 thou/uL (1.20-3.40); #Monocytes 1.2 thou/uL (0.11-0.59); #Neutrophils 6.8 thou/uL (1.40-6.50); %Basophils 0.3 % (0.0-1.0); %Eosinophils 2.8 % (0.0-10.0); %Lymphocytes 26.9 % (21.0-51.0); %Monocytes 10.4 % (0.0-10.0); %Neutrophils 59.6 % (42.0-75.0); Mean Corpuscular HGB CONC 33.6 g/dL (32.0-36.0); Mean Platelet Volume 7.1 fL (7.4-10.4); Platelet Count 326 10x3/uL (130-400); RBC Distribution Width 11.2 % (11.5-14.5); Red Blood Cell (RBC) Count 3.72 mill/uL (4.70-6.10); White Blood Cell (WBC) Count 11.4 10x3/uL (4.8-10.8)
[2022-10-06 04:04] LABS: Vancomycin, Trough 10.2 ug/mL
[2022-10-06 04:05] LABS: Anion Gap 11 mmol/L (10-20); BUN (Urea Nitrogen) 9 mg/dL (8.9-20.6); Calc. Creatinine Clearance 192 mL/min (70-130); Calcium 8.2 mg/dL (7.8-10.44); Carbon Dioxide 23 mmol/L (22-29); Chloride 108 mmol/L (98-107); Estimated GFR 114; Glucose 90 mg/dL (70-105); Sodium 138 mmol/L (136-145)
[2022-10-06] MEDS: VANCOMYCIN 1.75 GM/500 ML BAG 1.75 GM in Premix Bag 1 BAG IVPB SCH (05:31)
[2022-10-06] MEDS: Vancomycin 1.5 GRAM/300 ML BAG 1.5 GM in Premix Bag 1 BAG IVPB SCH ×2 (05:55→16:57)
[2022-10-06] MEDS: Cefepime 2 GM in Sodium Chloride 0.9% 100 ML IVPB SCH (08:53)
[2022-10-06] MEDS: Enoxaparin Sodium 40 MG/0.4 ML SYRINGE SC SCH (08:53)
[2022-10-06] MEDS ORDERED: FLU VACC QS2022-23(6MOS UP)/PF 60 MCG/0.5 ML SYRINGE IM ONE (09:00)
[2022-10-06 16:00] VITALS: BP 124/84; TEMP 98.2
[2022-10-06 16:14] LABS: Cytoplasmic (C-ANCA) <1:20 titer (Neg:<1:20); Perinuclear (P-ANCA) <1:20 titer (Neg:<1:20)
[2022-10-06 19:09] LABS: HIV-1 Quantitative, RNA PCR <20 copies/mL (.)
== END 2022-10-06 17:02 | disposition home or self-care (01) | DRG 179 ==
LOC: SURG A 20:55
PROVIDERS: ADMIT Internal Medicine; ATTEND Internal Medicine
DX: J85.0 Gangrene and necrosis of lung (principal); Z86.16 Personal history of COVID-19; Z23 Encounter for immunization; Z21 Asymptomatic human immunodeficiency virus [HIV] infection status; K76.0 Fatty (change of) liver, not elsewhere classified; F12.10 Cannabis abuse, uncomplicated; J45.909 Unspecified asthma, uncomplicated; F17.210 Nicotine dependence, cigarettes, uncomplicated; Z86.711 Personal history of pulmonary embolism; Z79.899 Other long term (current) drug therapy; Z98.890 Other specified postprocedural states; Z91.018 Allergy to other foods; Z86.718 Personal history of other venous thrombosis and embolism; Z87.01 Personal history of pneumonia (recurrent); Z88.0 Allergy status to penicillin; Z71.6 Tobacco abuse counseling; Z86.14 Personal history of Methicillin resistant Staphylococcus aureus infection
CPT/HCPCS: 36415; 80048; 80202; 80306; 80307; 85025; 86037; 86038; 86225; 86361; 86480; 87070; 87081; 87116; 87205; 87206; 87449; 87536; 90471; 90686; 93306; 94640; G0008; J0692; J1650; J1885; J2270; J3370; J3490; J7620

== ENCOUNTER 2022-11-04 19:40 | Inpatient (IN) | payer SELFPAY ==
[~2022-11-04 19:40] MED LIST: Iopamidol-370 76% 500 ML 1 ML ONE
[2022-11-04 22:43] LABS: #Basophils 0.1 thou/uL (0.0-0.2); #Eosinphils 0.2 thou/uL (0.0-0.7); #Lymphocytes 4.4 thou/uL (1.20-3.40); #Neutrophils 7.4 thou/uL (1.40-6.50); %Basophils 0.6 % (0.0-1.0); %Eosinophils 1.7 % (0.0-10.0); %Lymphocytes 33.5 % (21.0-51.0); %Monocytes 7.7 % (0.0-10.0); %Neutrophils 56.4 % (42.0-75.0); Hemoglobin 15.1 g/dL (14.0-18.0); Mean Corpuscular HGB CONC 34.6 g/dL (32.0-36.0); Mean Corpuscular Hemoglobin 35.4 pg (27.0-31.0); Mean Platelet Volume 7.4 fL (7.4-10.4); Platelet Count 310 10x3/uL (130-400); RBC Distribution Width 11.6 % (11.5-14.5); Red Blood Cell (RBC) Count 4.27 mill/uL (4.70-6.10); White Blood Cell (WBC) Count 13.2 10x3/uL (4.8-10.8)
[2022-11-04 23:03] LABS: ALT (SGPT) 20 U/L (8-55); AST (SGOT) 13 U/L (5-34); Alkaline Phosphatase 91 U/L (40-110); Anion Gap 10 mmol/L (10-20); BUN (Urea Nitrogen) 8 mg/dL (8.9-20.6); Bilirubin, Total 0.3 mg/dL (0.2-1.2); Calc. Creatinine Clearance 0 mL/min (70-130); Calcium 8.9 mg/dL (7.8-10.44); Carbon Dioxide 24 mmol/L (22-29); Chloride 106 mmol/L (98-107); Estimated GFR 110; Globulin 3.5 g/dL (2.4-3.5); Glucose 113 mg/dL (70-105); Protein, Total 7.5 g/dL (6.0-8.3); Sodium 136 mmol/L (136-145)
[2022-11-04] MEDS ORDERED: Morphine 4 MG/ML VIAL ONE (23:09)
[2022-11-04] MEDS ORDERED: Ondansetron PF 4 MG/2 ML Vial ONE (23:09)
[2022-11-04] MEDS ORDERED: CEFAZOLIN 2 GM VIAL ONE (23:30)
[2022-11-04] MEDS ORDERED: Vancomycin 1 GM/200 ML (FROZEN) BAG ONE (23:30)
[2022-11-05 00:35] LABS: Bilirubin Negative (Negative); Blood, Urine Negative (Negative); Clarity Clear (Clear); Glucose, Urine (Dipstick) Normal (Negative); Ketone, Urine Negative (Negative); Leukocyte Negative Leu/uL (Negative); Nitrite Negative (Negative); Protein, Urine (Dipstick) Negative (Neg-Trace); Specific Gravity, Urine 1.014 (1.002-1.036); Urobilinogen Normal mg/dL (Less than 2)
[2022-11-05] MEDS ORDERED: Cefepime 2 GM VIAL ONE (03:00)
[2022-11-05 03:27] VITALS: BMI 31.2
[2022-11-05] MEDS: Cefepime 2 GM in Sodium Chloride 0.9% 100 ML IVPB SCH ×2 (03:29→17:18)
[2022-11-05] MEDS ORDERED: Vancomycin 1 GM/200 ML (FROZEN) BAG ONE (03:54)
[2022-11-05] MEDS ORDERED: Vancomycin 1 GM in Premix Bag 1 BAG IVPB SCH ×2 (04:00→09:00)
[2022-11-05 04:21] LABS: #Basophils 0.1 thou/uL (0.0-0.2); #Eosinphils 0.2 thou/uL (0.0-0.7); #Lymphocytes 3.4 thou/uL (1.20-3.40); #Monocytes 0.8 thou/uL (0.11-0.59); #Neutrophils 5.8 thou/uL (1.40-6.50); %Basophils 0.8 % (0.0-1.0); %Eosinophils 2.3 % (0.0-10.0); %Lymphocytes 32.5 % (21.0-51.0); %Monocytes 8.1 % (0.0-10.0); %Neutrophils 56.3 % (42.0-75.0); Hemoglobin 13.7 g/dL (14.0-18.0); Mean Corpuscular HGB CONC 33.1 g/dL (32.0-36.0); Mean Platelet Volume 7.6 fL (7.4-10.4); Platelet Count 290 10x3/uL (130-400); RBC Distribution Width 11.6 % (11.5-14.5); Red Blood Cell (RBC) Count 4.02 mill/uL (4.70-6.10); White Blood Cell (WBC) Count 10.4 10x3/uL (4.8-10.8)
[2022-11-05 04:39] LABS: Anion Gap 7 mmol/L (10-20); BUN (Urea Nitrogen) 8 mg/dL (8.9-20.6); Calc. Creatinine Clearance 194 mL/min (70-130); Calcium 8.1 mg/dL (7.8-10.44); Carbon Dioxide 27 mmol/L (22-29); Chloride 107 mmol/L (98-107); Estimated GFR 115; Glucose 135 mg/dL (70-105); Potassium 3.8 mmol/L (3.5-5.1); Sodium 137 mmol/L (136-145)
[2022-11-05] MEDS ORDERED: Sodium Chloride 0.9% 1,000 ML IV SCH (04:45)
[2022-11-05 09:13] LABS: SARS-CoV-2 NAA Rapid Test Not Detected (NotDetected)
[2022-11-05] MEDS ORDERED: VANCOMYCIN 1.75 GM/500 ML BAG 1.75 GM in Premix Bag 1 BAG IVPB SCH (10:00)
[2022-11-05] MEDS ORDERED: traMADol HCl 50 MG TAB PO PRN (22:18)
[2022-11-05] MEDS: VANCOMYCIN 1.75 GM/500 ML BAG 1.75 GM in Premix Bag 1 BAG IVPB SCH (22:24)
[2022-11-05] MEDS ORDERED: traMADol HCl 50 MG TAB PO SCH (22:30)
[2022-11-05] MEDS: (Bictegrav/Emtricit/Tenofov Ala [Biktarvy 50-200-25 Mg Tablet] PO SCH (22:32)
[2022-11-06] MEDS: Cefepime 2 GM in Sodium Chloride 0.9% 100 ML IVPB SCH (02:43)
[2022-11-06] MEDS: Morphine 4 MG/ML VIAL SLOW IVP PRN ×3 (03:38→20:04)
[2022-11-06] MEDS: VANCOMYCIN 1.75 GM/500 ML BAG 1.75 GM in Premix Bag 1 BAG IVPB SCH (05:31)
[2022-11-06 06:37] LABS: #Basophils 0.1 thou/uL (0.0-0.2); #Eosinphils 0.3 thou/uL (0.0-0.7); #Lymphocytes 3.6 thou/uL (1.20-3.40); #Monocytes 0.8 thou/uL (0.11-0.59); #Neutrophils 5.9 thou/uL (1.40-6.50); %Eosinophils 2.5 % (0.0-10.0); %Lymphocytes 33.6 % (21.0-51.0); %Monocytes 7.8 % (0.0-10.0); %Neutrophils 55.2 % (42.0-75.0); Hemoglobin 13.9 g/dL (14.0-18.0); Mean Corpuscular HGB CONC 34.3 g/dL (32.0-36.0); Mean Corpuscular Hemoglobin 34.7 pg (27.0-31.0); Mean Platelet Volume 7.9 fL (7.4-10.4); Platelet Count 274 10x3/uL (130-400); RBC Distribution Width 11.6 % (11.5-14.5); Red Blood Cell (RBC) Count 4.01 mill/uL (4.70-6.10); White Blood Cell (WBC) Count 10.6 10x3/uL (4.8-10.8)
[2022-11-06 06:59] LABS: Anion Gap 11 mmol/L (10-20); BUN (Urea Nitrogen) 6 mg/dL (8.9-20.6); Calc. Creatinine Clearance 194 mL/min (70-130); Calcium 8.3 mg/dL (7.8-10.44); Carbon Dioxide 21 mmol/L (22-29); Chloride 107 mmol/L (98-107); Estimated GFR 115; Glucose 96 mg/dL (70-105); Sodium 135 mmol/L (136-145)
[2022-11-06] MEDS: (Bictegrav/Emtricit/Tenofov Ala [Biktarvy 50-200-25 Mg Tablet] PO SCH (09:13)
[2022-11-06 13:18] LABS: Vancomycin, Trough 22.7 ug/mL
[2022-11-06] MEDS ORDERED: Magnevist 469MG/ML 20 ML VIAL ONE (15:40)
[2022-11-06 16:16] LABS: PTT 35.2 sec (22.9-36.1); Prothrombin Time 13.3 sec (12.0-14.7)
[2022-11-06] MEDS: VANCOMYCIN 1.25 GM/250 ML BAG 1.25 GM in Premix Bag 1 BAG IVPB SCH (22:05)
[2022-11-07] MEDS: VANCOMYCIN 1.25 GM/250 ML BAG 1.25 GM in Premix Bag 1 BAG IVPB SCH ×3 (05:18→22:20)
[2022-11-07 07:00] LABS: #Basophils 0.1 thou/uL (0.0-0.2); #Eosinphils 0.3 thou/uL (0.0-0.7); #Lymphocytes 3.7 thou/uL (1.20-3.40); #Neutrophils 4.7 thou/uL (1.40-6.50); %Basophils 0.9 % (0.0-1.0); %Eosinophils 3.1 % (0.0-10.0); %Monocytes 9.7 % (0.0-10.0); %Neutrophils 48.3 % (42.0-75.0); Mean Corpuscular HGB CONC 33.4 g/dL (32.0-36.0); Mean Corpuscular Hemoglobin 34.1 pg (27.0-31.0); Mean Platelet Volume 7.9 fL (7.4-10.4); Platelet Count 276 10x3/uL (130-400); RBC Distribution Width 11.6 % (11.5-14.5); Red Blood Cell (RBC) Count 4.11 mill/uL (4.70-6.10); White Blood Cell (WBC) Count 9.7 10x3/uL (4.8-10.8)
[2022-11-07 07:19] LABS: Anion Gap 10 mmol/L (10-20); BUN (Urea Nitrogen) 9 mg/dL (8.9-20.6); Calc. Creatinine Clearance 199 mL/min (70-130); Calcium 8.7 mg/dL (7.8-10.44); Carbon Dioxide 25 mmol/L (22-29); Chloride 105 mmol/L (98-107); Estimated GFR 115; Glucose 90 mg/dL (70-105); Potassium 4.3 mmol/L (3.5-5.1); Sodium 136 mmol/L (136-145)
[2022-11-07] MEDS: (Bictegrav/Emtricit/Tenofov Ala [Biktarvy 50-200-25 Mg Tablet] PO SCH (08:11)
[2022-11-07] MEDS: Morphine 4 MG/ML VIAL SLOW IVP PRN ×2 (11:35→19:39)
[2022-11-08] MEDS: Albuterol 200 PUFF (6.7GM INHALER) INH PRN (00:12)
[2022-11-08] MEDS: VANCOMYCIN 1.25 GM/250 ML BAG 1.25 GM in Premix Bag 1 BAG IVPB SCH ×2 (05:41→14:14)
[2022-11-08] MEDS: Morphine 4 MG/ML VIAL SLOW IVP PRN ×3 (08:24→20:19)
[2022-11-08] MEDS: (Bictegrav/Emtricit/Tenofov Ala [Biktarvy 50-200-25 Mg Tablet] PO SCH (08:26)
[2022-11-08 21:19] LABS: Vancomycin, Trough 12.2 ug/mL
[2022-11-08] MEDS: Vancomycin 1.5 GRAM/300 ML BAG 1.5 GM in Premix Bag 1 BAG IVPB SCH (22:13)
[2022-11-09] MEDS: Morphine 4 MG/ML VIAL SLOW IVP PRN ×5 (00:19→22:08)
[2022-11-09] MEDS: Vancomycin 1.5 GRAM/300 ML BAG 1.5 GM in Premix Bag 1 BAG IVPB SCH ×3 (06:07→22:04)
[2022-11-09] MEDS: (Bictegrav/Emtricit/Tenofov Ala [Biktarvy 50-200-25 Mg Tablet] PO SCH (08:19)
[2022-11-09 21:27] LABS: Vancomycin, Trough 18.3 ug/mL
[2022-11-10] MEDS: Morphine 4 MG/ML VIAL SLOW IVP PRN ×3 (01:45→13:14)
[2022-11-10] MEDS: Albuterol 200 PUFF (6.7GM INHALER) INH PRN (02:01)
[2022-11-10] MEDS: Vancomycin 1.5 GRAM/300 ML BAG 1.5 GM in Premix Bag 1 BAG IVPB SCH ×2 (06:00→13:14)
[2022-11-10 07:10] LABS: #Eosinphils 0.4 thou/uL (0.0-0.7); #Lymphocytes 3.7 thou/uL (1.20-3.40); #Neutrophils 3.9 thou/uL (1.40-6.50); %Basophils 0.4 % (0.0-1.0); %Eosinophils 4.6 % (0.0-10.0); %Lymphocytes 41.1 % (21.0-51.0); %Monocytes 10.5 % (0.0-10.0); %Neutrophils 43.4 % (42.0-75.0); Hemoglobin 13.2 g/dL (14.0-18.0); Mean Corpuscular HGB CONC 33.5 g/dL (32.0-36.0); Mean Corpuscular Hemoglobin 34.3 pg (27.0-31.0); Mean Platelet Volume 7.7 fL (7.4-10.4); Platelet Count 288 10x3/uL (130-400); RBC Distribution Width 11.6 % (11.5-14.5); Red Blood Cell (RBC) Count 3.85 mill/uL (4.70-6.10); White Blood Cell (WBC) Count 9.1 10x3/uL (4.8-10.8)
[2022-11-10 07:19] LABS: Anion Gap 9 mmol/L (10-20); BUN (Urea Nitrogen) 8 mg/dL (8.9-20.6); CK (CPK) 28 U/L (30-200); CRP (Inflammatory) 1.01 mg/dL (= or < 0.5); Calc. Creatinine Clearance 149 mL/min (70-130); Calcium 8.3 mg/dL (7.8-10.44); Carbon Dioxide 25 mmol/L (22-29); Chloride 108 mmol/L (98-107); Estimated GFR 91; Glucose 98 mg/dL (70-105); Potassium 4.2 mmol/L (3.5-5.1); Sodium 138 mmol/L (136-145)
[2022-11-10] MEDS: (Bictegrav/Emtricit/Tenofov Ala [Biktarvy 50-200-25 Mg Tablet] PO SCH (08:03)
[2022-11-10 17:53] VITALS: BP 107/77; TEMP 97.9
[2022-11-11 14:13] LABS: Fungus Stain Final report (.)
== END 2022-11-10 18:10 | disposition home or self-care (01) | DRG 540 ==
LOC: ERS 19:40 → ERHOLD 11-05 01:11 → T4-B 11-05 13:09 → OBSVTOIN 11-05 15:46
PROVIDERS: ADMIT Family Medicine; ATTEND Family Medicine
PROC: 0J963ZX Drainage of Chest Subcutaneous Tissue and Fascia, Percutaneous Approach, Diagnostic (ICD-10-PCS; principal; 2022-11-06)
PROC: 02HV33Z Insertion of Infusion Device into Superior Vena Cava, Percutaneous Approach (ICD-10-PCS; 2022-11-09)
PROC: B5181ZA Fluoroscopy of Superior Vena Cava using Low Osmolar Contrast, Guidance (ICD-10-PCS; 2022-11-09)
PROC: B548ZZA Ultrasonography of Superior Vena Cava, Guidance (ICD-10-PCS; 2022-11-09)
DX: M86.8X8 Other osteomyelitis, other site (principal); L02.213 Cutaneous abscess of chest wall; Z20.822 Contact with and (suspected) exposure to COVID-19; B95.62 Methicillin resistant Staphylococcus aureus infection as the cause of diseases classified elsewhere; Z21 Asymptomatic human immunodeficiency virus [HIV] infection status; F17.210 Nicotine dependence, cigarettes, uncomplicated; J45.909 Unspecified asthma, uncomplicated; K76.0 Fatty (change of) liver, not elsewhere classified; Z88.0 Allergy status to penicillin; Z91.018 Allergy to other foods; Z79.899 Other long term (current) drug therapy; Z86.711 Personal history of pulmonary embolism; Z86.16 Personal history of COVID-19
CPT/HCPCS: 10005; 36415; 36569; 71045; 71275; 71552; 80048; 80053; 80202; 81003; 82550; 83605; 84145; 85025; 85610; 85652; 85730; 86140; 87040; 87070; 87077; 87086; 87102; 87186; 87205; 87206; 96372; 96374; 96375; 96376; A9579; C1751; G0378; J0692; J1650; J2270; J2405; J3370; J3370-JW; J3490; J7050; Q9967

== ENCOUNTER 2024-03-31 02:40 | Emergency (ER) | payer SELFPAY ==
[2024-03-31 03:51] LABS: #Basophils 0.04 10x3/uL (0.0-0.2); #Eosinphils Less than 0.03 10x3/uL (0.0-0.7); %Basophils 0.3 % (0.0-1.0); %Eosinophils 0.1 % (0.0-10.0); %Lymphocytes 12.7 % (21.0-51.0); %Monocytes 7.4 % (0.0-10.0); %Neutrophils 79.1 % (42.0-75.0); Hematocrit 35.9 % (42.0-52.0); Hemoglobin 12.3 g/dL (14.0-18.0); Mean Corpuscular HGB CONC 34.3 g/dL (32.0-36.0); Mean Corpuscular Hemoglobin 34.8 pg (27.0-31.0); Mean Corpuscular Volume 101.7 fL (78.0-98.0); Mean Platelet Volume 10.2 fL (7.4-10.4); Platelet Count 342 10x3/uL (130-400); RBC Distribution Width 12.9 % (11.5-14.5); Red Blood Cell (RBC) Count 3.53 mill/uL (4.70-6.10)
[2024-03-31 04:15] LABS: INR-International Normal Ratio 1.1; PTT 31.3 sec (22.9-36.1); Prothrombin Time 14.6 sec (12.0-14.7)
[2024-03-31 04:16] LABS: ALT (SGPT) 20 U/L (8-55); AST (SGOT) 17 U/L (5-34); Albumin 3.7 g/dL (3.5-5.0); Alkaline Phosphatase 77 U/L (40-110); Anion Gap 14 mmol/L (10-20); BUN (Urea Nitrogen) 14 mg/dL (8.9-20.6); Bilirubin, Total 0.8 mg/dL (0.2-1.2); Calc. Creatinine Clearance 0 mL/min (70-130); Calcium 8.8 mg/dL (7.8-10.44); Carbon Dioxide 21 mmol/L (22-29); Chloride 109 mmol/L (98-107); Estimated GFR 104; Glucose 109 mg/dL (70-105); Potassium 3.8 mmol/L (3.5-5.1); Protein, Total 6.7 g/dL (6.0-8.3); Sodium 140 mmol/L (136-145)
[2024-03-31 04:20] LABS: Troponin I Less than 0.010 ng/mL (< 0.028)
[2024-03-31] MEDS ORDERED: Apixaban 5 MG TAB ONE (06:42)
[2024-03-31] MEDS ORDERED: HYDROcodone/Acetaminophen 10/325 mg Tablet ONE (06:43)
== END 2024-03-31 08:31 | disposition home or self-care (01) ==
LOC: ERS 02:40
DX: I82.432 Acute embolism and thrombosis of left popliteal vein (principal); I82.442 Acute embolism and thrombosis of left tibial vein; B20 Human immunodeficiency virus [HIV] disease; F17.210 Nicotine dependence, cigarettes, uncomplicated; Z79.01 Long term (current) use of anticoagulants
CPT/HCPCS: 36415; 80053; 83605; 83880; 84484; 85025; 85610; 85730; 86141; 93005